=== PATIENT | male | born 1950 | race Caucasian/White ===

== ENCOUNTER 2022-10-02 00:08 | Observation (INO) | payer MEDICARE, OTHER ==
[2022-10-02] MEDS ORDERED: Senokot S 8.6-50 MG TAB PO PRN (00:31)
[2022-10-02] MEDS ORDERED: Ondansetron ODT 4 MG TAB PO PRN (00:31)
[2022-10-02 04:43] VITALS: BMI 34.8
[2022-10-02 05:24] LABS: #Lymphocytes 1.1 thou/uL (1.20-3.40); #Monocytes 0.7 thou/uL (0.11-0.59); %Basophils 0.2 % (0.0-1.0); %Eosinophils 0.1 % (0.0-10.0); %Lymphocytes 16.5 % (21.0-51.0); %Monocytes 10.3 % (0.0-10.0); %Neutrophils 72.8 % (42.0-75.0); Hemoglobin 15.5 g/dL (14.0-18.0); Mean Corpuscular HGB CONC 33.1 g/dL (32.0-36.0); Mean Corpuscular Volume 93.8 fl (78.0-98.0); Mean Platelet Volume 7.5 fL (7.4-10.4); Platelet Count 134 10x3/uL (130-400); RBC Distribution Width 14.6 % (11.5-14.5); Red Blood Cell (RBC) Count 5.01 mill/uL (4.70-6.10); White Blood Cell (WBC) Count 6.9 10x3/uL (4.8-10.8)
[2022-10-02 05:52] LABS: Anion Gap 15 mmol/L (10-20); BUN (Urea Nitrogen) 14 mg/dL (8.4-25.7); Calc. Creatinine Clearance 112 mL/min (70-130); Calcium 8.5 mg/dL (7.8-10.44); Carbon Dioxide 19 mmol/L (23-31); Chloride 104 mmol/L (98-107); Estimated GFR 81; Glucose 79 mg/dL (83-110); Potassium 4.1 mmol/L (3.5-5.1); Sodium 134 mmol/L (136-145)
[2022-10-02] MEDS: Acetaminophen 325 MG TAB PO PRN ×2 (06:22→20:16)
[2022-10-02] MEDS: Apixaban 5 MG TAB PO SCH ×2 (08:51→20:15)
[2022-10-02] MEDS: Famotidine 20 MG TAB PO SCH ×2 (08:52→20:15)
[2022-10-02] MEDS: Oseltamivir 75 MG CAP PO SCH ×2 (08:52→20:16)
[2022-10-03] MEDS: Apixaban 5 MG TAB PO SCH (08:48)
[2022-10-03] MEDS: Famotidine 20 MG TAB PO SCH (08:48)
[2022-10-03] MEDS: Oseltamivir 75 MG CAP PO SCH (08:48)
[2022-10-03 11:23] LABS: #Eosinphils 0.1 thou/uL (0.0-0.7); #Lymphocytes 1.1 thou/uL (1.20-3.40); #Monocytes 0.5 thou/uL (0.11-0.59); %Basophils 0.3 % (0.0-1.0); %Eosinophils 1.8 % (0.0-10.0); %Lymphocytes 22.8 % (21.0-51.0); %Neutrophils 64.3 % (42.0-75.0); Hemoglobin 15.8 g/dL (14.0-18.0); Mean Corpuscular HGB CONC 31.1 g/dL (32.0-36.0); Mean Corpuscular Hemoglobin 29.4 pg (27.0-31.0); Mean Corpuscular Volume 94.5 fl (78.0-98.0); Mean Platelet Volume 7.2 fL (7.4-10.4); Platelet Count 156 10x3/uL (130-400); RBC Distribution Width 14.4 % (11.5-14.5); Red Blood Cell (RBC) Count 5.37 mill/uL (4.70-6.10); White Blood Cell (WBC) Count 4.6 10x3/uL (4.8-10.8)
[2022-10-03 11:36] LABS: Anion Gap 12 mmol/L (10-20); BUN (Urea Nitrogen) 20 mg/dL (8.4-25.7); Calc. Creatinine Clearance 134 mL/min (70-130); Calcium 8.9 mg/dL (7.8-10.44); Carbon Dioxide 22 mmol/L (23-31); Chloride 105 mmol/L (98-107); Estimated GFR 92; Glucose 87 mg/dL (83-110); Phosphorus 2.9 mg/dL (2.3-4.7); Potassium 4.3 mmol/L (3.5-5.1); Sodium 135 mmol/L (136-145)
[2022-10-03 16:07] VITALS: BP 115/72; TEMP 98.4
[2022-10-04] MEDS ORDERED: Atorvastatin Calcium 20 MG TAB PO SCH (09:00)
[2022-10-04] MEDS ORDERED: Aspirin 81 mg Enteric Coated Tablet PO SCH (09:00)
== END 2022-10-03 16:45 | disposition home or self-care (01) ==
LOC: NEURO 00:08 → INTOOBSV 00:08
PROVIDERS: ADMIT Student in an Organized Health Care Education/Training Program; ATTEND Nurse Practitioner Family
DX: I48.91 Unspecified atrial fibrillation (principal); J10.1 Influenza due to other identified influenza virus with other respiratory manifestations; N17.9 Acute kidney failure, unspecified; E86.0 Dehydration; I10 Essential (primary) hypertension; I08.0 Rheumatic disorders of both mitral and aortic valves; E78.5 Hyperlipidemia, unspecified; Z87.891 Personal history of nicotine dependence; Z79.82 Long term (current) use of aspirin; Z79.899 Other long term (current) drug therapy
CPT/HCPCS: 80048 ×2; 83735; 84100; 84145; 85025 ×2; 93306; G0378; 36415

== ENCOUNTER 2022-11-10 12:10 | Outpatient (CLI) | payer MEDICARE, OTHER ==
[2022-11-10 13:14] LABS: #Basophils 0.1 10x3/uL (0.0-0.2); #Eosinphils 0.2 10x3/uL (0.0-0.5); #Monocytes 0.6 10x3/uL (0.0-1.1); #Neutrophils 4.5 10x3/uL (1.5-8.4); %Basophils 1.2 % (0.0-2.0); %Eosinophils 2.3 % (0.0-6.0); %Lymphocytes 26.4 % (18.0-47.0); %Monocytes 7.6 % (0.0-10.0); %Neutrophils 62.1 % (40.0-75.0); Hemoglobin 15.6 g/dL (13.5-17.5); Mean Corpuscular Hemoglobin 29.7 pg (27.0-33.0); Mean Corpuscular Volume 89.9 fl (81.2-95.1); Mean Platelet Volume 9.2 fl (7.4-10.4); Platelet Count 204 10x3/uL (150-450); RBC Distribution Width 15.4 % (11.5-14.5); Red Blood Cell (RBC) Count 5.26 10x6/uL (4.32-5.72); White Blood Cell (WBC) Count 7.2 10x3/uL (3.5-10.5)
[2022-11-10 13:25] LABS: Anion Gap 15 mmol/L (10-20); BUN (Urea Nitrogen) 16 mg/dL (8.4-25.7); Calc. Creatinine Clearance 0 mL/min (70-130); Calcium 9.4 mg/dL (7.8-10.44); Carbon Dioxide 26 mmol/L (23-31); Chloride 104 mmol/L (98-107); Estimated GFR 63; Glucose 98 mg/dL (83-110); Potassium 5.1 mmol/L (3.5-5.1); Sodium 140 mmol/L (136-145)
== END 2022-11-10 12:11 | disposition home or self-care (01) ==
LOC: LABBT 12:10
PROVIDERS: ATTEND Internal Medicine Cardiovascular Disease
DX: Z01.812 Encounter for preprocedural laboratory examination (principal); I48.91 Unspecified atrial fibrillation
CPT/HCPCS: 80048; 85025

== ENCOUNTER 2022-11-13 09:06 | Day surgery (SDC) | payer MEDICARE, OTHER ==
[2022-11-11 10:20] VITALS: BMI 34.4
[2022-11-13] MEDS ORDERED: Ketamine 50 MG/ML (10ML VIAL) ONE (11:07)
[2022-11-13] MEDS ORDERED: Lidocaine 1% PF 5 ML VIAL ONE (11:18)
[2022-11-13] MEDS ORDERED: PROPOFOL 200 MG/20 ML VIAL ONE (11:18)
== END 2022-11-13 13:18 | disposition home or self-care (01) ==
LOC: SDC 09:06
PROVIDERS: ATTEND Internal Medicine Cardiovascular Disease
PROC: B246ZZ4 Ultrasonography of Right and Left Heart, Transesophageal (ICD-10-PCS; principal; 2022-11-13)
PROC: 5A2204Z Restoration of Cardiac Rhythm, Single (ICD-10-PCS; 2022-11-13)
DX: I48.91 Unspecified atrial fibrillation (principal); I08.8 Other rheumatic multiple valve diseases; I70.0 Atherosclerosis of aorta; I11.9 Hypertensive heart disease without heart failure; Z87.891 Personal history of nicotine dependence; Z79.01 Long term (current) use of anticoagulants; Z79.82 Long term (current) use of aspirin; Z79.899 Other long term (current) drug therapy
CPT/HCPCS: 92960; 93005; 93010; 93312; J2704

== ENCOUNTER 2023-06-15 17:19 | Inpatient (IN) | payer MEDICARE, OTHER ==
[~2023-06-15 17:19] MED LIST: Iopamidol-370 76% 500 ML MDV (1 ML CHARGE) ONE
[2023-06-15 17:58] LABS: #Basophils 0.1 thou/uL (0.0-0.2); #Monocytes 0.8 thou/uL (0.11-0.59); #Neutrophils 15.2 thou/uL (1.40-6.50); %Basophils 0.4 % (0.0-1.0); %Lymphocytes 3.8 % (21.0-51.0); %Monocytes 4.8 % (0.0-10.0); %Neutrophils 90.2 % (42.0-75.0); Hematocrit 49.3 % (42.0-52.0); Hemoglobin 15.9 g/dL (14.0-18.0); Mean Corpuscular HGB CONC 32.3 g/dL (32.0-36.0); Mean Corpuscular Hemoglobin 31.9 pg (27.0-31.0); Mean Platelet Volume 9.5 fL (7.4-10.4); Platelet Count 201 10x3/uL (130-400); RBC Distribution Width 15.3 % (11.5-14.5); Red Blood Cell (RBC) Count 4.98 mill/uL (4.70-6.10); White Blood Cell (WBC) Count 16.8 10x3/uL (4.8-10.8)
[2023-06-15 18:24] LABS: ALT (SGPT) 17 U/L (8-55); AST (SGOT) 20 U/L (5-34); Albumin 3.8 g/dL (3.4-4.8); Alkaline Phosphatase 103 U/L (40-110); Anion Gap 16 mmol/L (10-20); BUN (Urea Nitrogen) 13 mg/dL (8.4-25.7); Bilirubin, Total 1.8 mg/dL (0.2-1.2); Calc. Creatinine Clearance 0 mL/min (70-130); Calcium 9.2 mg/dL (7.8-10.44); Carbon Dioxide 21 mmol/L (23-31); Chloride 104 mmol/L (98-107); Estimated GFR 88; Globulin 3.3 g/dL (2.4-3.5); Glucose 84 mg/dL (83-110); Lipase 29 U/L (8-78); Magnesium 1.6 mg/dL (1.6-2.6); Potassium 4.3 mmol/L (3.5-5.1); Protein, Total 7.1 g/dL (5.8-8.1); Sodium 137 mmol/L (136-145)
[2023-06-15 18:46] LABS: Troponin I Less than 0.010 ng/mL (< 0.028)
[2023-06-15 19:01] LABS: SARS-CoV-2 NAA Rapid Test Not Detected (NotDetected)
[2023-06-15] MEDS ORDERED: Ipratropium/Albuterol 3 ML NEB ONE (19:09)
[2023-06-15] MEDS ORDERED: Cefepime 2 GM VIAL ONE (19:44)
[2023-06-15] MEDS ORDERED: Sodium Chloride 0.9% 100 ML ONE (19:44)
[2023-06-15] MEDS ORDERED: Ondansetron ODT 4 MG TAB SL PRN (20:15)
[2023-06-15] MEDS ORDERED: Ondansetron PF 4 MG/2 ML Vial IVP PRN (20:15)
[2023-06-15] MEDS ORDERED: LevoFLOXacin 750 mg/D5W 150 ml Premix Bag ONE (20:24)
[2023-06-15 22:17] LABS: Lactic Acid 1.9 mmol/L (0.5-2.2)
[2023-06-15] MEDS ORDERED: Vancomycin 1 GM/200 ML (FROZEN) BAG ONE (23:19)
[2023-06-16] MEDS: Sodium Chloride 0.9% 1,000 ML IV SCH ×2 (00:14→11:49)
[2023-06-16 00:47] LABS: Bacteria/HPF None Seen HPF (None Seen); Bilirubin Negative (Negative); Blood, Urine Trace (Negative); CAUTI Indications for Culture Dysuria,urgency,freq; Clarity Clear (Clear); Glucose, Urine (Dipstick) Greater than 1000 mg/dL (Negative); Ketone, Urine 20 mg/dL (Negative); Leukocyte Negative Leu/uL (Negative); Nitrite Negative (Negative); Protein, Urine (Dipstick) 30 mg/dL (Neg-Trace); RBC/HPF 0-3 HPF (0-3); Squamous Epithelial None Seen HPF (0-3); Urobilinogen Normal mg/dL (Less than 2); WBC/HPF 0-3 HPF (0-3)
[2023-06-16 00:52] LABS: Specific Gravity, Urine 1.057 (1.002-1.036); Urine Culture Reflex No No
[2023-06-16] MEDS ORDERED: Doxycycline 100 MG CAP ONE (08:59)
[2023-06-16] MEDS ORDERED: Atorvastatin Calcium 20 MG TAB ONE (08:59)
[2023-06-16] MEDS ORDERED: Metoprolol Tartrate 25 MG TAB ONE (08:59)
[2023-06-16] MEDS ORDERED: Famotidine 20 MG TAB ONE (08:59)
[2023-06-16] MEDS ORDERED: Amiodarone 200 MG TAB ONE (08:59)
[2023-06-16] MEDS ORDERED: Sacubitril 49 MG/Valsartan 51 MG TABLET PO SCH (09:00)
[2023-06-16] MEDS: Atorvastatin Calcium 20 MG TAB PO SCH (10:18)
[2023-06-16] MEDS: Doxycycline 100 MG CAP PO SCH ×2 (10:18→21:16)
[2023-06-16] MEDS: Famotidine 20 MG TAB PO SCH ×2 (10:18→21:15)
[2023-06-16] MEDS: Apixaban 5 MG TAB PO SCH ×2 (10:18→21:16)
[2023-06-16] MEDS: Amiodarone 200 MG TAB PO SCH ×2 (10:18→21:16)
[2023-06-16 13:22] VITALS: BMI 19.0
[2023-06-16] MEDS: Sacubitril 49 MG/Valsartan 51 MG TABLET PO SCH ×2 (16:17→21:16)
[2023-06-16] MEDS ORDERED: LevoFLOXacin 750 mg/D5W 750 MG in Premix 1 BAG IVPB SCH (21:00)
[2023-06-17] MEDS: Apixaban 5 MG TAB PO SCH (08:16)
[2023-06-17] MEDS: Sacubitril 49 MG/Valsartan 51 MG TABLET PO SCH (08:16)
[2023-06-17] MEDS: Amiodarone 200 MG TAB PO SCH (08:17)
[2023-06-17] MEDS: Atorvastatin Calcium 20 MG TAB PO SCH (08:17)
[2023-06-17] MEDS: Famotidine 20 MG TAB PO SCH (08:17)
[2023-06-17] MEDS: Doxycycline 100 MG CAP PO SCH (08:17)
[2023-06-17 09:19] LABS: #Eosinphils 0.1 thou/uL (0.0-0.7); #Monocytes 0.6 thou/uL (0.11-0.59); #Neutrophils 8.3 thou/uL (1.40-6.50); %Basophils 0.4 % (0.0-1.0); %Eosinophils 0.9 % (0.0-10.0); %Lymphocytes 6.9 % (21.0-51.0); %Monocytes 6.2 % (0.0-10.0); %Neutrophils 83.6 % (42.0-75.0); Hemoglobin 13.2 g/dL (14.0-18.0); Mean Corpuscular HGB CONC 32.2 g/dL (32.0-36.0); Mean Corpuscular Hemoglobin 31.8 pg (27.0-31.0); Mean Corpuscular Volume 98.8 fl (78.0-98.0); Platelet Count 189 10x3/uL (130-400); RBC Distribution Width 15.2 % (11.5-14.5); Red Blood Cell (RBC) Count 4.15 mill/uL (4.70-6.10); White Blood Cell (WBC) Count 9.9 10x3/uL (4.8-10.8)
[2023-06-17 09:40] LABS: Anion Gap 11 mmol/L (10-20); BUN (Urea Nitrogen) 13 mg/dL (8.4-25.7); Calc. Creatinine Clearance 128 mL/min (70-130); Calcium 8.6 mg/dL (7.8-10.44); Carbon Dioxide 24 mmol/L (23-31); Chloride 105 mmol/L (98-107); Estimated GFR 93; Glucose 99 mg/dL (83-110); Potassium 3.8 mmol/L (3.5-5.1); Sodium 136 mmol/L (136-145)
[2023-06-17] MEDS ORDERED: Furosemide 40 MG/4 ML VIAL SLOW IVP SCH (10:45)
[2023-06-17 11:32] VITALS: TEMP 97.6
[2023-06-17 15:57] VITALS: BP 136/77
[2023-06-19] MEDS ORDERED: FLU VACC QS2023(65UP)/MF59C/PF 60 MCG/0.5 ML SYRINGE IM ONE (09:00)
== END 2023-06-17 16:48 | disposition home or self-care (01) | DRG 193 ==
LOC: ERS 17:19 → OBSVTOIN 20:21 → ERHOLD 20:21 → 2NO 06-16 12:29
PROVIDERS: ADMIT Student in an Organized Health Care Education/Training Program; ATTEND Internal Medicine
DX: J18.9 Pneumonia, unspecified organism (principal); J96.01 Acute respiratory failure with hypoxia; I48.91 Unspecified atrial fibrillation; I50.9 Heart failure, unspecified; Z11.52 Encounter for screening for COVID-19; Z79.82 Long term (current) use of aspirin; Z79.01 Long term (current) use of anticoagulants; Z79.899 Other long term (current) drug therapy; E78.5 Hyperlipidemia, unspecified; R59.0 Localized enlarged lymph nodes; I11.0 Hypertensive heart disease with heart failure; Z87.891 Personal history of nicotine dependence
CPT/HCPCS: 36415; 71045; 71275; 80048; 80053; 81001; 83605; 83690; 83735; 83880; 84484; 85025; 87040; 93005; 94640; 96361; 96365; 96366; 96368; 96375; J0692; J1940; J1956; J3370-JW; J3490; J7050; J7620; Q9967